=== PATIENT | female | born 1995 | race Caucasian/White ===

== ENCOUNTER 2019-02-22 20:56 | Emergency (ER) | payer BC ==
[~2019-02-22] VITALS: Ht 170.2 cm; Wt 63.6 kg
[2019-02-22 21:21] VITALS: BP 113/80
[2019-02-22 22:08] LABS: URINE HCG NEGATIVE (NEG)
[2019-02-22 22:09] LABS: CLARITY,URINE CLEAR (Clear); COLOR,URINE YELLOW (Yellow); GLUCOSE, URINE NEGATIVE (Neg); KETONES,URINE NEGATIVE (Neg); LEUKOCYTE ESTERASE ,URINE TRACE (Neg); NITRITES, URINE NEGATIVE (Neg); OCCULT BLOOD,URINE NEGATIVE (Neg); PH,URINE 7.5 (4.8-8.0); PROTEIN,URINE NEGATIVE (Neg); UROBILINOGEN,URINE 0.2 E.U/dL (0.2-1.0)
[2019-02-22 22:17] LABS: UA COLLECTION TYPE NON-SPECIFIED
[2019-02-22 22:18] LABS: BACTERIA,URINE FEW /HPF (Neg); RBC,URINE NONE SEEN /HPF (0-2); SQUAMOUS EPITHELIAL CELL,UR FEW /LPF (FEW); WBC,URINE 0-4 /HPF (0-4)
[2019-02-22] MEDS ORDERED: PHEN-824 PO (22:46)
[2019-02-22] MEDS ORDERED: NITR100C6 PO (22:46)
[2019-02-22] MEDS ORDERED: FLO0.4C PO (22:46)
== END 2019-02-22 23:04 | disposition home or self-care (01) ==
LOC: ER 20:58
DX: N39.0 Urinary tract infection, site not specified (principal); R39.89 Other symptoms and signs involving the genitourinary system; Z79.899 Other long term (current) drug therapy
CPT/HCPCS: 81001; 81025; 87088; 99284

== ENCOUNTER 2019-02-25 17:16 | Emergency (ER) | payer BC ==
[~2019-02-25] VITALS: Ht 170.2 cm; Wt 63.0 kg
[~2019-02-25 17:16] MED LIST: FLO0.4C PO; NITR100C6 PO; PHEN-824 PO
[2019-02-25 17:50] LABS: BASOPHILS % (AUTO) 0.4 % (0-1); EOSINOPHILS # (AUTO) 0.1 X10'3 (0-0.9); EOSINOPHILS % (AUTO) 0.9 % (0-6); HEMATOCRIT 41.1 % (35.0-45.0); HEMOGLOBIN 13.1 g/dl (12.0-16.0); LYMPHOCYTES # (AUTO) 1.8 X10'3 (1.1-4.8); LYMPHOCYTES % (AUTO) 24.3 % (21-51); MEAN CORPUSCULAR HEMOGLOBIN 23.8 PG (27.0-31.0); MEAN CORPUSCULAR HGB CONC 31.9 g/dL (33.0-36.5); MEAN CORPUSCULAR VOLUME 74.7 FL (78-98); MONOCYTES # (AUTO) 0.8 X10'3 (0-0.9); MONOCYTES % (AUTO) 11.4 % (2-12); NEUTROPHILS # (AUTO) 4.5 X10'3 (1.8-7.7); PLATELET COUNT 238 X10'3 (140-440); RED CELL DISTRIBUTION WIDTH 15.1 % (11.5-14.5); WHITE BLOOD COUNT 7.2 X10'3 (4.5-11.0)
[2019-02-25 17:59] LABS: ALANINE AMINOTRANSFERASE 19 U/L (12-78); ALBUMIN 4.3 G/DL (3.4-5.0); ALBUMIN/GLOBULIN RATIO 1.2 (1.1-1.5); ALKALINE PHOSPHATASE 67 IU/L (46-116); ANION GAP 10 (8-16); ASPARTATE AMINO TRANSFERASE 11 U/L (10-37); BILIRUBIN,TOTAL 0.4 MG/DL (0.1-1.0); BLOOD UREA NITROGEN 8 MG/DL (7-18); BUN/CREATININE RATIO 11.4 (6.6-38.0); CALCIUM 9.2 MG/DL (8.5-10.1); CHLORIDE 108 MMOL/L (99-107); GLUCOSE 96 MG/DL (70-104); POTASSIUM 3.6 MMOL/L (3.5-5.1); SODIUM 143 MMOL/L (135-145); TOTAL CARBON DIOXIDE 25.2 MMOL/L (24-32); TOTAL PROTEIN 7.9 G/DL (6.4-8.2); eGFR > 90 ML/MIN
[2019-02-25 18:27] LABS: URINE HCG NEGATIVE (NEG)
[2019-02-25 18:33] LABS: CLARITY,URINE CLEAR (Clear); COLOR,URINE ORANGE (Yellow); UA COLLECTION TYPE CLN CATCH MIDSTREAM
[2019-02-25 18:42] LABS: BACTERIA,URINE FEW /HPF (Neg); MUCUS STRANDS NONE SEEN /LPF (Neg); RBC,URINE NONE SEEN /HPF (0-2); SQUAMOUS EPITHELIAL CELL,UR FEW /LPF (FEW)
[2019-02-25] MEDS ORDERED: TRAM50TA2 PO (20:37)
[2019-02-25] MEDS ORDERED: CEPH-571 PO (20:37)
[2019-02-25] MEDS ORDERED: ONDA4TAB6 PO (20:37)
[2019-02-25 20:47] VITALS: BP 123/79
== END 2019-02-25 20:49 | disposition home or self-care (01) ==
LOC: ER 17:17
DX: N83.201 Unspecified ovarian cyst, right side (principal); Z79.899 Other long term (current) drug therapy
CPT/HCPCS: 36415; 76830; 76856; 80053; 81001; 81025; 85025; 87088; 99284